=== PATIENT | male | born 1980 | race Caucasian/White ===

== ENCOUNTER 2017-08-18 13:19 | Emergency (ER) | payer OTHER ==
[~2017-08-18] VITALS: Ht 167.6 cm; Wt 65.9 kg
[2017-08-18 13:54] VITALS: BP 127/66; PULSE 93; RESP 18; TEMP 98.3; O2SAT 97
[2017-08-18] MEDS ORDERED: PROPARACAINE HCL 0.5% OPHT SOLN 15 ML BTL EACH EYE ONE (14:15)
--- NOTE | 2017-08-18 14:53 | PD ---
HPI Chief Complaint: Foreign Body Time Seen by Provider: 14:05 Travel History International Travel<30 days: No Contact w/Intl Traveler<30days: No Traveled to known affect area: No History of Present Illness HPI 37-year-old male here with foreign body to the left eye 4 days. Reports he was heading through medical with a saw wearing protective glasses while at work and believes something got in his eye at that time. He denies ocular pain. He reports mild irritation of left eye. He was seen at [facility]. He presents today requesting a referral to an resident intern because he was not given one at that visit. He is currently on ofloxacin ophthalmic drops. No aggravating or alleviating factors. He denies visual acuity changes. PFSH Past Medical History Medical History: Denies Significant Hx Diminished Hearing: No Tetanus Vaccination: < 5 Years Influenza Vaccination: No Social History Alcohol Use: No Tobacco Use: Yes Substance Use: No Allergies-Medications (Allergen,Severity, Reaction): Coded Allergies: No Known Allergies (Unverified , 08/18/17) Reported Meds & Prescriptions Reported Meds & Active Scripts Active No Active Prescriptions or Reported Medications Review of Systems Except as stated in HPI: all other systems reviewed are Neg Eyes: Positive: Foreign Body Sensation HENT: No: Headaches Cardiovascular: No: Chest Pain or Discomfort Respiratory: No: Shortness of Breath Gastrointestinal: No: Abdominal Pain Physical Exam Narrative GENERAL: Well-appearing 37-year-old male SKIN: Warm and dry. HEAD: Normocephalic. EYES: No injection or drainage. Left eye: Pupil equal, round, reactive to light. EOMs intact. Cornea is clear. Small metal lesly superficially embedded to the cornea over the iris located at 9:00. Fluorescein dye uptake noted at the location of the foreign body. Visual acuity: L:20/40 , R:20/25 , B :20/25 NECK: Supple Data Data Last Documented VS Vital Signs Date Time Temp Pulse Resp B/P (MAP) Pulse Ox O2 Delivery O2 Flow Rate FiO2 08/18/17 13:54 98.3 93 18 127/66 (86) 97 Orders Orders Proparacaine 0.5% Opth Soln (Alcaine 0.5 (08/18/17 14:15) MDM Medical Decision Making Medical Screen Exam Complete: Yes Emergency Medical Condition: Yes Differential Diagnosis Corneal foreign body, corneal abrasion, corneal ulcer Narrative Course 37-year-old male with corneal foreign body to his left eye 4 days. Foreign body was easily removed. Patient tolerated procedure well. He is to continue his ofloxacin ophthalmic drops and follow-up with on-call resident intern Dr. Corbin tomorrow. Procedures Procedure Narrative Corneal foreign body removal: Proparacaine drops applied to the left eye. Using Q-tip the foreign body was easily brushed away. Fluorescein dye uptake noted at the location of the foreign body. Isn't tolerated procedure well. Diagnosis Primary Impression: Corneal foreign body Qualified Codes: T15.02XA - Foreign body in cornea, left eye, initial encounter Referrals: Magdalena Corbin MD Additional Instructions: Continue using the ofloxacin ophthalmic drops as directed. Call to make a follow-up appointment with resident intern Dr. Corbin tomorrow Return to emergency department if he developed new or worsening symptoms. Scripts No Active Prescriptions or Reported Meds Disposition: 01 DISCHARGE HOME Condition: Stable Rosa Ya Aug 18, 2017 14:53
== END 2017-08-18 15:00 | disposition home or self-care (01) ==
LOC: NEPK 13:19
DX: T15.02XA Foreign body in cornea, left eye, initial encounter (principal); W45.8XXA Other foreign body or object entering through skin, initial encounter; Y99.0 Civilian activity done for income or pay; Z72.0 Tobacco use
CPT/HCPCS: 65220; 99283